=== PATIENT | female | born 1975 | race Hispanic/Latino ===

== ENCOUNTER 2016-12-17 09:02 | Emergency (ER) | payer OTHER ==
[2016-12-17 09:09] VITALS: BMI 23.6
[2016-12-17 09:10] VITALS: BP 116/67; PULSE 67; RESP 19; TEMP 98.2; O2SAT 98
[2016-12-17] MEDS ORDERED: Albuterol 0.083% Inhal Sol (2.5 mg/3 mL) UD INH STA (09:30)
--- NOTE | 2016-12-17 09:33 | ED PDOC ---
HPI: CCC, URI, Sore Throat Time Seen by Provider: 12/17/16 09:16 Chief Complaint (Nursing): Cough, Cold, Congestion History Per: Patient History/Exam Limitations: no limitations Onset/Duration Of Symptoms: Gradual (1 week worse today) Current Symptoms Are (Timing): Still Present Location Of Pain: None Sick Contacts (Context): None Associated Symptoms: Cough. denies: Fever, Chills, Sore Throat, Sputum, Neck Pain, Myalgias, Nasal Congestion, Nausea, Vomiting Ear Symptoms: Bilateral: None Severity: Mild Additional History Per: Patient Additional Complaint(s): worsening non prod cough for 1 week ran out of cough medicine and albuterol similar to asthma in the past Against Medical Advice - AMA Patient Left Against Medical Advice: The patient declines admission to the hospital and wishes to leave the Emergency Department. This action is against my medical advice. This decision was made with informed refusal. The patient was told that admission to the hospital is necessary. Explanation of the reasons why were discussed. The risks of leaving were explained to the patient and include, but are not limited to, worsening of known or currently unknown conditions, permanent disability and from undiagnosed or untreated conditions. The patient has the capacity to make this informed decision and understands my explanation of the current medical problem and risks of leaving. The patient voluntarily accepts these risks and signed an AMA form documenting our conversation. The patient was given the opportunity to ask questions and reconsider. The patient was encouraged to return to the Emergency Department at any time for further care. Past Medical History Reviewed: Historical Data, Nursing Documentation, Vital Signs Vital Signs: Last Vital Signs Temp 98.2 F 12/17/16 09:10 Pulse 67 12/17/16 09:10 Resp 19 12/17/16 09:10 BP 116/67 12/17/16 09:10 Pulse Ox 98 12/17/16 09:36 - Medical History PMH: Anxiety, Asthma, Back Problems, Bronchitis, COPD, Depression, Sexually Transmitted Disease - Surgical History Surgical History: (on 08/27/15) - Family History Family History: States: Unknown Family Hx - Living Arrangements Living Arrangements: Other (intermediate) - Social History Current smoker - smoking cessation education provided: No - Immunization History Hx Tetanus Toxoid Vaccination: No Hx Influenza Vaccination: No Hx Pneumococcal Vaccination: No - Home Medications Home Medications: Ambulatory Orders Medication Instructions Recorded Albuterol HFA [Ventolin HFA 90 1 puff IH Q4 #1 puff 05/14/16 mcg/actuation (8 g)] Albuterol 0.083% [Albuterol 0.083% 2.5 mg IH Q4 PRN #50 vial 07/01/16 Inhal Deloris (2.5 mg/3 ml) UD] Albuterol HFA [Ventolin HFA 90 2 puff IH Q4 PRN #1 unit 07/01/16 mcg/actuation (8 g)] Azithromycin [Zithromax] 250 mg PO DAILY #6 tab 07/01/16 Nebulizer and Compressor [Comp-Air 1 each MC PRN PRN #1 unit 07/01/16 Nebulizer System] Prednisone 50 mg PO DAILY #4 tab 07/01/16 Promethazine HCl/Codeine 5 ml PO TID PRN #25 syrup 07/01/16 [Prometh-Codein 6.25-10 mg/5 ml] - Allergies Allergies/Adverse Reactions: Allergies Allergy/AdvReac Type Severity Reaction Status Date / Time No Known Allergies Allergy Verified 12/17/16 09:21 Review of Systems ROS Statement: Except As Marked, All Systems Reviewed And Found Negative Constitutional: Negative for: Fever, Chills Cardiovascular: Negative for: Chest Pain, Palpitations Respiratory: Positive for: Cough, Shortness of Breath. Negative for: SOB with Exertion, Pleuritic Pain, Sputum Gastrointestinal: Negative for: Nausea, Vomiting, Abdominal Pain Neurological: Negative for: Weakness, Numbness, Headache Physical Exam - Reviewed Nursing Documentation Reviewed: Yes Vital Signs Reviewed: Yes - Physical Exam Appears: Positive for: Uncomfortable Head Exam: Positive for: ATRAUMATIC, NORMAL INSPECTION, NORMOCEPHALIC Eye Exam: Positive for: Normal appearance, EOMI, PERRL Neck: Positive for: Normal, Painless ROM, Supple. Negative for: Decreased ROM, Limited ROM, Trachea Midline, Pain On Movement Of Neck Cardiovascular/Chest: Positive for: Regular Rate, Rhythm, Chest Non Tender. Negative for: Edema, Gallop, Murmur, Bradycardia, Tachycardia Respiratory: Positive for: Wheezing (mild scattered). Negative for: Decreased Breath Sounds, Accessory Muscle Use, Crackles, Rales, Rhonchi, Stridor, Respiratory Distress, Plerual Rub Extremity: Positive for: Normal ROM. Negative for: Tenderness, Pedal Edema, Calf Tenderness, Deformity, Swelling Neurologic/Psych: Positive for: Alert, contact manager II-XII, Oriented, Mood/Affect (calm) . Negative for: Motor/Sensory Deficits, Facial Droop - ECG ECG: Positive for: Interpreted By Me ECG Rhythm: Positive for: Normal QRS, Normal ST Segment, Sinus Rhythm (rate of 63). Negative for: ST/T Changes Interpretation Of Abn EKG: no evidence of ischemia O2 Sat by Pulse Oximetry: 98 Pulse Ox Interpretation: Normal - Progress ED Course And Treament: pt left before treatment complete left before signing ama paperwork Re-evaluation Time: 09:36 Condition: Unchanged Disposition - Clinical Impression Clinical Impression: Bronchospasm - Patient ED Disposition Is Patient to be Admitted: No - Disposition Disposition: Left W/O Treatment Disposition Time: 09:56 Condition: STABLE
--- NOTE | 2016-12-19 06:39 | CARD ---
APPROVED REPORT EKG Measurement Heart [id number] <Conclusion> Normal sinus rhythm Possible Left atrial enlargement Borderline ECG
== END 2016-12-17 10:25 | disposition left against medical advice (07) ==
LOC: H.ER 09:02
DX: J98.01 Acute bronchospasm (principal); J44.9 Chronic obstructive pulmonary disease, unspecified

== ENCOUNTER 2016-12-24 23:43 | Emergency (ER) | payer MEDICAID, OTHER ==
[2016-12-24 23:43] VITALS: BMI 23.6
[2016-12-24 23:49] VITALS: BP 117/73; PULSE 70; RESP 18; TEMP 98; O2SAT 99
[2016-12-25] MEDS ORDERED: TDAP Vaccine 0.5 mL Syr IM ONE (00:30)
[2016-12-25] MEDS ORDERED: Oxycodone/Acetaminophen 5/325 mg Tab PO STA (00:30)
[2016-12-25] MEDS ORDERED: Lidocaine/Epi 1% 1:100000 20 ML IJ ONE (01:19)
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
[2016-12-25] MEDS ORDERED: Lidocaine 2% w Epi 1:100,000 Inj IJ ONE (01:40)
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
== END 2016-12-25 02:30 | disposition home or self-care (01) ==
LOC: H.ER 23:43
DX: S09.90XA Unspecified injury of head, initial encounter (principal); S01.01XA Laceration without foreign body of scalp, initial encounter; S09.93XA Unspecified injury of face, initial encounter; Y04.0XXA Assault by unarmed brawl or fight, initial encounter; Y92.89 Other specified places as the place of occurrence of the external cause; F32.9 Major depressive disorder, single episode, unspecified; F41.9 Anxiety disorder, unspecified; J44.9 Chronic obstructive pulmonary disease, unspecified; J45.909 Unspecified asthma, uncomplicated

== ENCOUNTER 2017-01-03 17:09 | Emergency (ER) | payer SELFPAY ==
[2017-01-03 17:09] VITALS: BMI 23.6
[2017-01-03 17:20] VITALS: BP 136/67; PULSE 61; RESP 16; TEMP 98.6; O2SAT 99
--- NOTE | 2017-01-03 17:44 | ED PDOC ---
HPI: CCC, URI, Sore Throat Time Seen by Provider: 01/03/17 17:16 Chief Complaint (Nursing): Cough, Cold, Congestion Chief Complaint (Provider): Cough History Per: Patient History/Exam Limitations: no limitations Have you had recent travel within the past 21 days to any of the following countries: [place], [place], [place] or [place]?: No Onset/Duration Of Symptoms: Days (7 days) Current Symptoms Are (Timing): Still Present Associated Symptoms: Diarrhea. denies: Fever Additional Complaint(s): Dominique Kaiser, a 41 year old female, presents to the ED with cough she has been experiencing for the past week. The patient states that her cough isn' t associated with any shortness of breath or fever. She also reports that today she had one episode of non bloody, watery diarrhea and crampy abdominal pains. The patient also states that she is also here today for a staple removal on her scalp she had placed 2 weeks ago. She also reports that 2 weeks ago she tripped and fell and and injured her right hand and has been feeling numbness to the right fourth and fifth digit and since has not been evaluated for it.Denies chest pain, hemoptysis, recent travel. Past Medical History Reviewed: Historical Data, Nursing Documentation, Vital Signs Vital Signs: Last Vital Signs Temp 98.6 F 01/03/17 17:16 Pulse 61 01/03/17 17:16 Resp 16 01/03/17 17:16 BP 136/67 01/03/17 17:16 Pulse Ox 99 01/03/17 18:11 - Medical History PMH: Anxiety, Asthma, Back Problems, Bronchitis, COPD, Depression, Sexually Transmitted Disease - Surgical History Surgical History: (on 08/27/15) - Family History Family History: States: Unknown Family Hx - Immunization History Hx Tetanus Toxoid Vaccination: No Hx Influenza Vaccination: No Hx Pneumococcal Vaccination: No - Home Medications Home Medications: Ambulatory Orders Medication Instructions Recorded Albuterol 0.083% [Albuterol 0.083% 2.5 mg IH Q4 PRN #50 vial 07/01/16 Inhal Deloris (2.5 mg/3 ml) UD] Nebulizer and Compressor [Comp-Air 1 each MC PRN PRN #1 unit 07/01/16 Nebulizer System] Albuterol HFA [Ventolin HFA 90 1 puff IH Q4 #1 puff 12/19/16 mcg/actuation (8 g)] Prednisone 50 mg PO DAILY #5 tablet 12/19/16 Albuterol 0.083% [Albuterol 0.083% 2.5 mg IH TID #100 neb 12/24/16 Inhal Deloris (2.5 mg/3 ml) UD] Ibuprofen [Motrin] 600 mg PO Q6H #20 tab 12/24/16 predniSONE [Prednisone] 40 mg PO DAILY #10 tab 12/24/16 Cyclobenzaprine [Cyclobenzaprine 10 mg PO BID #15 tab 12/25/16 HCl] Ibuprofen [Motrin Tab] 600 mg PO Q6 #30 tab 12/25/16 Benzonatate [Tessalon Perle] 100 mg PO Q8 PRN #15 capsule 01/03/17 - Allergies Allergies/Adverse Reactions: Allergies Allergy/AdvReac Type Severity Reaction Status Date / Time No Known Allergies Allergy Verified 01/03/17 17:15 Review of Systems Constitutional: Negative for: Fever Cardiovascular: Negative for: Chest Pain Respiratory: Positive for: Cough. Negative for: Shortness of Breath, Hemoptysis Gastrointestinal: Positive for: Abdominal Pain (Crampy abdominal pains), Diarrhea (One episode of non bloody, watery diarrhea.) Physical Exam - Reviewed Nursing Documentation Reviewed: Yes Vital Signs Reviewed: Yes - Physical Exam Appears: Positive for: Well, Non-toxic, No Acute Distress Head Exam: Positive for: ATRAUMATIC, NORMAL INSPECTION (3 [place] in placed in left anterior parietal scalp; no surrounding erythema to wound area.), NORMOCEPHALIC Skin: Positive for: Normal Color, Warm, Dry. Negative for: Rash Eye Exam: Positive for: Normal appearance, EOMI, PERRL ENT: Positive for: Normal ENT Inspection Neck: Positive for: Normal, Painless ROM, Supple Cardiovascular/Chest: Positive for: Regular Rate, Rhythm, Chest Non Tender. Negative for: Tachycardia Respiratory: Positive for: Normal Breath Sounds. Negative for: Wheezing, Respiratory Distress Pulses-Radial (L): 2+ Pulses-Radial (R): 2+ Gastrointestinal/Abdominal: Positive for: Normal Exam, Bowel Sounds, Soft. Negative for: Tenderness, Guarding, Rebound Back: Positive for: Normal Inspection Extremity: Positive for: Normal ROM (Full ROM actively to right hand.), Capillary Refill (Capillary refills less than 2 seconds on all digits on right hand.). Negative for: Tenderness (No tenderness to right hand.), Deformity (No deformity to right hand.), Swelling (No swelling to right hand.) Neurologic/Psych: Positive for: Alert, Oriented, Gait - ECG O2 Sat by Pulse Oximetry: 99 (RA) Pulse Ox Interpretation: Normal - Radiology X-Ray: Interpreted by Me (CXR) X-Ray Interpretation: No Acute Disease Medical Decision Making Medical Decision Makin:16 Initial Impression: 41 year old female presenting with a cough Initial Plan: * CXR(PA&LAT) * RAD Right hand 3 views [place] were removed from patient's scalp without difficulty. Patient tolerated the procedure well. Scribe Attestation Documented by Alexus White acting as a scribe for Harish Jacobo PA-C. Scribe Attestation All medical record entries made by the Scribe were at my direction and personally dictated by me. I have reviewed the chart and agree that the record accurately reflects my personal performance of the history, physical exam, medical decision making, and the department course for this patient. I have also personally directed, reviewed, and agree with the discharge instructions and disposition. Disposition - Clinical Impression Clinical Impression: Hand injury, Removal of [place], Diarrhea, Cough - Patient ED Disposition Is Patient to be Admitted: No Counseled Patient/Family Regarding: Studies Performed, Diagnosis - Disposition Referrals: [facility] [Outside] Disposition: Routine/Home Disposition Time: 18:10 Condition: STABLE Prescriptions: Benzonatate [Tessalon Perle] 100 mg PO Q8 PRN #15 capsule PRN Reason: Cough Instructions: Upper Respiratory Infection (ED), Acute Diarrhea (ED), Staple Care (ED) Print Language: AZERI
--- NOTE | 2017-01-03 18:02 | RAD ---
HISTORY: cough COMPARISON: 10/09/2015. TECHNIQUE: Chest PA and lateral FINDINGS: LUNGS: No active pulmonary disease. PLEURA: No significant pleural effusion identified. No pneumothorax apparent. CARDIOVASCULAR: Normal. OSSEOUS STRUCTURES: No significant abnormalities. VISUALIZED UPPER ABDOMEN: Normal. OTHER FINDINGS: None. IMPRESSION: No active disease. No significant interval change compared to the prior examination(s).
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
== END 2017-01-03 18:10 | disposition home or self-care (01) ==
LOC: H.ER 17:09
DX: Z48.02 Encounter for removal of sutures (principal); J06.9 Acute upper respiratory infection, unspecified; R19.7 Diarrhea, unspecified

== ENCOUNTER 2017-01-10 04:29 | Emergency (ER) | payer SELFPAY ==
[2017-01-10 04:29] VITALS: BMI 23.6
[2017-01-10 04:51] VITALS: BP 100/55; RESP 16; TEMP 98; O2SAT 98
--- NOTE | 2017-01-10 05:11 | ED PDOC ---
HPI: Chest Pain Time Seen by Provider: 01/10/17 04:51 Chief Complaint (Nursing): Chest Pain Chief Complaint (Provider): Chest pain, right arm numbness History Per: Patient History/Exam Limitations: no limitations Onset/Duration Of Symptoms: Hrs Current Symptoms Are (Timing): Still Present Severity: Moderate Quality: "Pain" Additional History Per: Patient Additional Complaint(s): The pt is a 41yo female, PMHx of COPD, Bronchitis, asthma, 2x , sciatica, presents to the ED for evaluation of left sided chest pain, non- radiating, present for the past couple hours with associated right arm numbness. Pt reports she was sleeping at onset of symptoms and denies any heavy lifting or injury to the area. She reports her pain is worse with inspiration and movement. Pt offers no additional medical complaints. Of note, pt is currently on injected control. PCP: Randal Li Past Medical History Reviewed: Historical Data, Nursing Documentation, Vital Signs Vital Signs: Last Vital Signs Temp 98 F 01/10/17 04:48 Pulse 80 01/10/17 04:48 Resp 16 01/10/17 04:48 BP 100/55 L 01/10/17 04:48 Pulse Ox 98 01/10/17 05:14 - Medical History PMH: Anxiety, Asthma, Back Problems, Bronchitis, COPD, Depression, Sexually Transmitted Disease - Surgical History Surgical History: (on 08/27/15) - Family History Family History: States: Unknown Family Hx - Social History Current smoker - smoking cessation education provided: Yes Alcohol: None Drugs: Denies - Immunization History Hx Tetanus Toxoid Vaccination: No Hx Influenza Vaccination: No Hx Pneumococcal Vaccination: No - Home Medications Home Medications: Ambulatory Orders Medication Instructions Recorded Albuterol 0.083% [Albuterol 0.083% 2.5 mg IH Q4 PRN #50 vial 07/01/16 Inhal Deloris (2.5 mg/3 ml) UD] Nebulizer and Compressor [Comp-Air 1 each MC PRN PRN #1 unit 07/01/16 Nebulizer System] Albuterol HFA [Ventolin HFA 90 1 puff IH Q4 #1 puff 12/19/16 mcg/actuation (8 g)] Prednisone 50 mg PO DAILY #5 tablet 12/19/16 Albuterol 0.083% [Albuterol 0.083% 2.5 mg IH TID #100 neb 12/24/16 Inhal Deloris (2.5 mg/3 ml) UD] Ibuprofen [Motrin] 600 mg PO Q6H #20 tab 12/24/16 predniSONE [Prednisone] 40 mg PO DAILY #10 tab 12/24/16 Cyclobenzaprine [Cyclobenzaprine 10 mg PO BID #15 tab 12/25/16 HCl] Ibuprofen [Motrin Tab] 600 mg PO Q6 #30 tab 12/25/16 Benzonatate [Tessalon Perle] 100 mg PO Q8 PRN #15 capsule 01/03/17 - Allergies Allergies/Adverse Reactions: Allergies Allergy/AdvReac Type Severity Reaction Status Date / Time No Known Allergies Allergy Verified 01/10/17 04:47 REBECA Risk Score for UA/NSTEMI - REBECA Risk Score Age > 64: NO 3 or more CAD Risk Factors: NO Known CAD (Stenosis greater than 50%): NO Aspirin use in past 7 days: NO Severe Angina: NO EKG ST changes greater than 0.5mm: NO Positive Cardiac Marker: NO REBECA Score: 0 Risk %: 5% Wells Criteria for PE - Wells Criteria for Pulmonary Embolism Clinical Signs and Symptoms of DVT: No P.E is #1 Diagnosis, or Equally Likely: No Heart Rate >100: No Immobilization at least 3 days;Surgery previous 4 weeks: No Previous, objectively diagnosed PE or DVT: No Hemoptysis: No Malignancy w/treatment within 6 months, or palliative: No Total Score: 0 Review of Systems ROS Statement: Except As Marked, All Systems Reviewed And Found Negative Cardiovascular: Positive for: Chest Pain (left sided) Musculoskeletal: Positive for: Other (right arm numbness) Physical Exam - Reviewed Nursing Documentation Reviewed: Yes Vital Signs Reviewed: Yes - Physical Exam Appears: Positive for: Well, Non-toxic, No Acute Distress Head Exam: Positive for: ATRAUMATIC, NORMAL INSPECTION, NORMOCEPHALIC Skin: Positive for: Normal Color, Warm, DRY Eye Exam: Positive for: Normal appearance Neck: Positive for: Normal, Supple Cardiovascular/Chest: Positive for: Regular Rate, Rhythm. Negative for: Chest Non Tender (+ tenderness to left chest wall below left breast.) Respiratory: Positive for: Normal Breath Sounds. Negative for: Respiratory Distress Gastrointestinal/Abdominal: Positive for: Normal Exam, Soft. Negative for: Tenderness Back: Positive for: Normal Inspection Extremity: Positive for: Normal ROM. Negative for: Deformity, Swelling Neurologic/Psych: Positive for: Alert, Oriented - ECG ECG: Positive for: Interpreted By Me, Viewed By Me ECG Rhythm: Positive for: Normal QRS, Normal ST Segment, Sinus Rhythm Rate: 73 O2 Sat by Pulse Oximetry: 98 (RA) Pulse Ox Interpretation: Normal Medical Decision Making Medical Decision Making: Time: 0500 Impression: Chest pain, right arm paresthesia Differential: PE, ACS, musculoskeletal pain, costochondritis left sided, right arm peripheral neuropathy Plan: -- -- -- Scribe Attestation: Documented by Marianne Crowder acting as a scribe for Chapo Kelly MD. Provider Attestation: All medical record entries made by the Scribe were at my direction and personally dictated by me. I have reviewed the chart and agree that the record accurately reflects my personal performance of the history, physical exam, medical decision making, and the department course for this patient. I have also personally directed, reviewed, and agree with the discharge instructions and disposition. Disposition - Clinical Impression Clinical Impression: Chest pain - Patient ED Disposition Is Patient to be Admitted: No - Disposition Referrals: Randal Li, BETTINA, PHOTOGRAMMETRIST [Primary Care Provider] - Disposition: Left W/O Treatment Disposition Time: 05:30 Condition: FAIR
--- NOTE | 2017-01-13 15:45 | CARD ---
APPROVED REPORT EKG Measurement Heart [id number] <Conclusion> Normal sinus rhythm Normal ECG
[2017-01-14 19:04] VITALS: PULSE 73
== END 2017-01-10 05:15 | disposition left against medical advice (07) ==
LOC: H.ER 04:29
DX: R07.9 Chest pain, unspecified (principal); J45.909 Unspecified asthma, uncomplicated

== ENCOUNTER 2017-02-12 12:39 | Emergency (ER) | payer OTHER ==
[2017-02-12 12:39] VITALS: BMI 23.6
[2017-02-12 13:00] VITALS: BP 110/69; PULSE 69; RESP 18; TEMP 97.4; O2SAT 98
--- NOTE | 2017-02-12 13:27 | ED PDOC ---
HPI: Allergic Reaction Time Seen by Provider: 02/12/17 13:00 Chief Complaint (Nursing): Abnormal Skin Integrity Chief Complaint (Provider): Rash, cough History Per: Patient History/Exam Limitations: no limitations Onset/Duration Of Symptoms: Hrs, Days Current Symptoms Are (Timing): Still Present Possible Cause: Insect Bite Associated Symptoms: Skin Rash, Itching Additional Complaint(s): The patient is a 41yo female with past medical history of COPD, presents to the ED for evaluation of itchy rash present on her lower back. Patient reports she used calamine lotion with no relief. Patient additionally reports her chronic cough has been worsening over the past 3 days and she has been using Tessalon without relief. Patient denies any shortness of breath, throat swelling and offers no additional medical complaints. Past Medical History Reviewed: Historical Data, Nursing Documentation, Vital Signs Vital Signs: Last Vital Signs Temp 97.4 F L 02/12/17 12:57 Pulse 69 02/12/17 12:57 Resp 18 02/12/17 12:57 BP 110/69 02/12/17 12:57 Pulse Ox 98 02/12/17 12:57 - Medical History PMH: Anxiety, Asthma, Back Problems, Bronchitis, COPD, Depression, Sexually Transmitted Disease - Surgical History Surgical History: (on 08/27/15) - Family History Family History: States: Unknown Family Hx - Immunization History Hx Tetanus Toxoid Vaccination: No Hx Influenza Vaccination: No Hx Pneumococcal Vaccination: No - Home Medications Home Medications: Ambulatory Orders Medication Instructions Recorded Albuterol 0.083% [Albuterol 0.083% 2.5 mg IH Q4 PRN #50 vial 07/01/16 Inhal Deloris (2.5 mg/3 ml) UD] Nebulizer and Compressor [Comp-Air 1 each MC PRN PRN #1 unit 07/01/16 Nebulizer System] Albuterol HFA [Ventolin HFA 90 1 puff IH Q4 #1 puff 12/19/16 mcg/actuation (8 g)] Prednisone 50 mg PO DAILY #5 tablet 12/19/16 Albuterol 0.083% [Albuterol 0.083% 2.5 mg IH TID #100 neb 12/24/16 Inhal Deloris (2.5 mg/3 ml) UD] Ibuprofen [Motrin] 600 mg PO Q6H #20 tab 12/24/16 predniSONE [Prednisone] 40 mg PO DAILY #10 tab 12/24/16 Cyclobenzaprine [Cyclobenzaprine 10 mg PO BID #15 tab 12/25/16 HCl] Ibuprofen [Motrin Tab] 600 mg PO Q6 #30 tab 12/25/16 Benzonatate [Tessalon Perle] 100 mg PO Q8 PRN #15 capsule 01/03/17 Albuterol HFA [Ventolin HFA 90 2 puff IH [id number] PRN #1 inhaler 02/12/17 mcg/actuation (8 g)] DiphenhydrAMINE [Benadryl] 2 tab PO Q6 PRN #24 cap 02/12/17 Hydrocortisone 1% Oint [Cortizone 0.5 gm TP BID #1 tube 02/12/17 1% Oint] - Allergies Allergies/Adverse Reactions: Allergies Allergy/AdvReac Type Severity Reaction Status Date / Time No Known Allergies Allergy Verified 01/10/17 04:47 Review of Systems ROS Statement: Except As Marked, All Systems Reviewed And Found Negative ENT: Negative for: Throat Pain, Throat Swelling Respiratory: Positive for: Cough. Negative for: Shortness of Breath Skin: Positive for: Rash Physical Exam - Reviewed Nursing Documentation Reviewed: Yes Vital Signs Reviewed: Yes - Physical Exam Appears: Positive for: Well, Non-toxic, No Acute Distress Head Exam: Positive for: ATRAUMATIC, NORMAL INSPECTION, NORMOCEPHALIC Skin: Positive for: Normal Color, Warm, DRY Eye Exam: Positive for: Normal appearance Neck: Positive for: Normal, Supple Cardiovascular/Chest: Positive for: Chest Non Tender Respiratory: Positive for: Normal Breath Sounds, Wheezing (mild). Negative for : Respiratory Distress Back: Positive for: Other (multiple small papular lesions present on lower back with mild surrounding utricarial rash) Extremity: Positive for: Normal ROM, Other (multiple papular lesions noted on extensor surface of b/l upper extremities). Negative for: Deformity Neurologic/Psych: Positive for: Alert, Oriented - ECG O2 Sat by Pulse Oximetry: 98 Disposition - Clinical Impression Clinical Impression: Bedbug bite, Cough - Patient ED Disposition Is Patient to be Admitted: No - Disposition Disposition: Routine/Home Disposition Time: 13:15 Condition: STABLE Prescriptions: Albuterol HFA [Ventolin HFA 90 mcg/actuation (8 g)] 2 puff IH [id number] PRN #1 inhaler PRN Reason: Cough DiphenhydrAMINE [Benadryl] 2 tab PO Q6 PRN #24 cap PRN Reason: Rash Hydrocortisone 1% Oint [Cortizone 1% Oint] 0.5 gm TP BID #1 tube Instructions: Asthma (DC), Insect Bite or Sting (ED) Forms: Identified (Uzbek) Medical Decision Making Medical Decision Making: Time: 1310 Impression: Rash, chronic cough Plan: -- Patient declines any medication at present, will give prescriptions for cortisone, benadryl and inhaler. Informed to follow up with Randal Li in 1-2 days. Scribe Attestation: Documented by Marianne Crowder acting as a scribe for AIMEE Bose Provider Attestation: All medical record entries made by the Scribe were at my direction and personally dictated by me. I have reviewed the chart and agree that the record accurately reflects my personal performance of the history, physical exam, medical decision making, and the department course for this patient. I have also personally directed, reviewed, and agree with the discharge instructions and disposition.
== END 2017-02-12 13:25 | disposition home or self-care (01) ==
LOC: H.ER 12:39
DX: R05 Cough (principal); T78.40XA Allergy, unspecified, initial encounter; J44.9 Chronic obstructive pulmonary disease, unspecified; Z86.59 Personal history of other mental and behavioral disorders; W57.XXXA Bitten or stung by nonvenomous insect and other nonvenomous arthropods, initial encounter

== ENCOUNTER 2017-02-12 14:43 | Emergency (ER) | payer OTHER, SELFPAY ==
[2017-02-12 14:43] VITALS: BMI 23.6
[2017-02-12 14:47] VITALS: BP 109/61; PULSE 78; RESP 18; TEMP 97; O2SAT 100
--- NOTE | 2017-02-12 14:59 | ED PDOC ---
HPI: Allergic Reaction Time Seen by Provider: 02/12/17 14:45 Chief Complaint (Nursing): Abnormal Skin Integrity Chief Complaint (Provider): Unable to fill meds History Per: Patient History/Exam Limitations: no limitations Onset/Duration Of Symptoms: Mins Additional Complaint(s): Time: 1444 Patient seen and evaluated in facility earlier today and reported she did not want Benadryl in room and would take prescriptions. Patient presents now requesting Benadryl for her allergies as she was not able to fill out the prescriptions. Patient denies any new medical complaints. Past Medical History Reviewed: Historical Data, Nursing Documentation, Vital Signs Vital Signs: Last Vital Signs Temp 97 F L 02/12/17 14:44 Pulse 78 02/12/17 14:44 Resp 18 02/12/17 14:44 BP 109/61 02/12/17 14:44 Pulse Ox 100 02/12/17 14:44 - Medical History PMH: Anxiety, Asthma, Back Problems, Bronchitis, COPD, Depression, Sexually Transmitted Disease - Surgical History Surgical History: (on 08/27/15) - Family History Family History: States: Unknown Family Hx - Immunization History Hx Tetanus Toxoid Vaccination: No Hx Influenza Vaccination: No Hx Pneumococcal Vaccination: No - Home Medications Home Medications: Ambulatory Orders Medication Instructions Recorded Albuterol 0.083% [Albuterol 0.083% 2.5 mg IH Q4 PRN #50 vial 07/01/16 Inhal Deloris (2.5 mg/3 ml) UD] Nebulizer and Compressor [Comp-Air 1 each MC PRN PRN #1 unit 07/01/16 Nebulizer System] Albuterol HFA [Ventolin HFA 90 1 puff IH Q4 #1 puff 12/19/16 mcg/actuation (8 g)] Prednisone 50 mg PO DAILY #5 tablet 12/19/16 Albuterol 0.083% [Albuterol 0.083% 2.5 mg IH TID #100 neb 12/24/16 Inhal Deloris (2.5 mg/3 ml) UD] Ibuprofen [Motrin] 600 mg PO Q6H #20 tab 12/24/16 predniSONE [Prednisone] 40 mg PO DAILY #10 tab 12/24/16 Cyclobenzaprine [Cyclobenzaprine 10 mg PO BID #15 tab 06/07/17 HCl] Ibuprofen [Motrin Tab] 600 mg PO Q6 #30 tab 12/25/16 Benzonatate [Tessalon Perle] 100 mg PO Q8 PRN #15 capsule 01/03/17 Albuterol HFA [Ventolin HFA 90 2 puff IH [id number] PRN #1 inhaler 02/12/17 mcg/actuation (8 g)] DiphenhydrAMINE [Benadryl] 2 tab PO Q6 PRN #24 cap 02/12/17 Hydrocortisone 1% Oint [Cortizone 0.5 gm TP BID #1 tube 02/12/17 1% Oint] - Allergies Allergies/Adverse Reactions: Allergies Allergy/AdvReac Type Severity Reaction Status Date / Time No Known Allergies Allergy Verified 01/10/17 04:47 Review of Systems ROS Statement: Except As Marked, All Systems Reviewed And Found Negative Skin: Positive for: Rash Physical Exam - Reviewed Nursing Documentation Reviewed: Yes Vital Signs Reviewed: Yes - Physical Exam Appears: Positive for: Well, Non-toxic, No Acute Distress Head Exam: Positive for: ATRAUMATIC, NORMAL INSPECTION, NORMOCEPHALIC Skin: Positive for: Normal Color Eye Exam: Positive for: EOMI, Normal appearance, PERRL Cardiovascular/Chest: Positive for: Regular Rate, Rhythm Respiratory: Positive for: Normal Breath Sounds. Negative for: Respiratory Distress Neurologic/Psych: Positive for: Alert, Oriented - ECG O2 Sat by Pulse Oximetry: 100 - Progress ED Course And Treament: Time: 1449 Benadryl 50 mg IM ordered Time: 1500 Patient refused Benadryl upon seeing needle, reports she will attempt to fill her prescriptions. Disposition - Clinical Impression Clinical Impression: Bed bug bite - Patient ED Disposition Is Patient to be Admitted: No - Disposition Disposition: Routine/Home Disposition Time: 15:00 Condition: FAIR Instructions: Insect Bite or Sting (ED) Forms: [employer] (Somali)
[2017-02-12] MEDS ORDERED: DiphenhydrAMINE 50 mg/ml Inj ONE (15:02)
[2017-02-12] MEDS: DiphenhydrAMINE 50 mg/ml Inj IM STA ×2 (15:03→15:06)
== END 2017-02-12 15:08 | disposition home or self-care (01) ==
LOC: H.ER 14:43
DX: T78.40XA Allergy, unspecified, initial encounter (principal); J44.9 Chronic obstructive pulmonary disease, unspecified; Z86.59 Personal history of other mental and behavioral disorders; W57.XXXA Bitten or stung by nonvenomous insect and other nonvenomous arthropods, initial encounter

== ENCOUNTER 2017-02-20 15:39 | Emergency (ER) | payer SELFPAY ==
[2017-02-20 15:39] VITALS: BMI 23.6
[2017-02-20] MEDS ORDERED: Albuterol-Ipratrop 3 mg / 0.5 (3 ml) UD INH STA (16:28)
--- NOTE | 2017-02-20 16:28 | ED PDOC ---
HPI: CCC, URI, Sore Throat Time Seen by Provider: 02/20/17 16:04 Chief Complaint (Nursing): Dizziness/Lightheaded Chief Complaint (Provider): cough History Per: Patient Additional Complaint(s): 41-year-old female with history of asthma presents to emergency Department with chest congestion and cough for 3 days. Patient states cough is productive of yellow and green sputum. Patient denies any shortness of breath but does have mild chest pain especially when coughing excessively. She states that she is out of her cough medication, promethazine with codeine. Past Medical History Reviewed: Historical Data, Nursing Documentation, Vital Signs Vital Signs: Last Vital Signs Temp 98.0 F 02/20/17 18:30 Pulse 65 02/20/17 18:30 Resp 18 02/20/17 18:30 BP 107/71 02/20/17 18:30 Pulse Ox 96 02/20/17 18:43 - Medical History PMH: Anxiety, Asthma, Back Problems, COPD, Depression - Surgical History Surgical History: (x 2) - Family History Family History: States: No Known Family Hx - Living Arrangements Living Arrangements: With Family - Social History Current smoker - smoking cessation education provided: Yes ("sometimes") Alcohol: None Drugs: Denies - Home Medications Home Medications: Ambulatory Orders Medication Instructions Recorded Albuterol 0.083% [Albuterol 0.083% 2.5 mg IH Q4 PRN #50 vial 07/01/16 Inhal Deloris (2.5 mg/3 ml) UD] Nebulizer and Compressor [Comp-Air 1 each MC PRN PRN #1 unit 07/01/16 Nebulizer System] Albuterol HFA [Ventolin HFA 90 1 puff IH Q4 #1 puff 12/19/16 mcg/actuation (8 g)] Prednisone 50 mg PO DAILY #5 tablet 12/19/16 Albuterol 0.083% [Albuterol 0.083% 2.5 mg IH TID #100 neb 12/24/16 Inhal Deloris (2.5 mg/3 ml) UD] Ibuprofen [Motrin] 600 mg PO Q6H #20 tab 12/24/16 predniSONE [Prednisone] 40 mg PO DAILY #10 tab 12/24/16 Cyclobenzaprine [Cyclobenzaprine 10 mg PO BID #15 tab 12/25/16 HCl] Ibuprofen [Motrin Tab] 600 mg PO Q6 #30 tab 12/25/16 Benzonatate [Tessalon Perle] 100 mg PO Q8 PRN #15 capsule 01/03/17 Albuterol HFA [Ventolin HFA 90 2 puff IH [id number] PRN #1 inhaler 02/12/17 mcg/actuation (8 g)] DiphenhydrAMINE [Benadryl] 2 tab PO Q6 PRN #24 cap 02/12/17 Hydrocortisone 1% Oint [Cortizone 0.5 gm TP BID #1 tube 02/12/17 1% Oint] Azithromycin [Zithromax] 250 mg PO DAILY #6 tab 02/20/17 Prednisone 50 mg PO DAILY #5 tablet 02/20/17 - Allergies Allergies/Adverse Reactions: Allergies Allergy/AdvReac Type Severity Reaction Status Date / Time No Known Allergies Allergy Verified 01/10/17 04:47 Curb-65 Severity Score - CURB-65 Severity Score Confusion: No Respiratory Rate greater than/equal to 30: No Age >64: No Curb-65 Score: 0 Percentage 30-day mortality: 0.6% Review of Systems ROS Statement: Except As Marked, All Systems Reviewed And Found Negative Constitutional: Negative for: Fever Cardiovascular: Positive for: Chest Pain (due to cough) Respiratory: Positive for: Cough, Shortness of Breath, Wheezing Gastrointestinal: Negative for: Vomiting Neurological: Positive for: Dizziness. Negative for: Headache Physical Exam - Reviewed Nursing Documentation Reviewed: Yes Vital Signs Reviewed: Yes - Physical Exam Appears: Positive for: Well, Non-toxic, No Acute Distress Head Exam: Positive for: ATRAUMATIC, NORMAL INSPECTION, NORMOCEPHALIC ENT: Positive for: Normal ENT Inspection Cardiovascular/Chest: Positive for: Regular Rate, Rhythm Respiratory: Positive for: Decreased Breath Sounds. Negative for: Respiratory Distress Extremity: Negative for: Pedal Edema, Calf Tenderness Neurologic/Psych: Positive for: Alert, Oriented - Laboratory Results Result Diagrams: 02/20/17 17:36 02/20/17 17:36 Urine POC: Negative - ECG Interpretation Of ECG: NSR 65 bpm, no acute finding, reviewed by PA and ED attending. O2 Sat by Pulse Oximetry: 96 Pulse Ox Interpretation: Normal - Other Rad CXR X-Ray: Interpreted by Me, Viewed By Me X-Ray Interpretation: no acute finding Nebulizer Treatments/Peak Flow - Duonebs Number of Bronchodilator Doses given?: 2 (duoneb) - Pre/Post Peak Flow Pre Treatment Peak Flow: 350 Post treatment Peak Flow: 380 - Steroid Treatment Steroid: IV (IM solumedrol 125 mg) - Clinical Response Clinical Response: Improved Medical Decision Making Medical Decision Makin41 year old female with asthma exacerbation Plan: CXR EKG CBC CMP Trop IVF Duoneb x 2 125 mg IM solumedrol Patient is aware of all diagnostic testing results, all questions answered. Patient feels much better after meds given in ED. Prescription given for prednisone and Zithromax. Patient has Ventolin inhaler at home. She was advised to follow up with primary doctor in 1-2 days. Disposition - Clinical Impression Clinical Impression: Asthma, Asthmatic bronchitis - Patient ED Disposition Is Patient to be Admitted: No Counseled Patient/Family Regarding: Studies Performed, Diagnosis, Need For Followup, Rx Given - Disposition Referrals: Randal Li, BETTINA, CAMPUS PRESIDENT [Advanced Practice Nurse] - Disposition: Routine/Home Disposition Time: 18:59 Condition: IMPROVED Additional Instructions: Take prescription meds as directed. Rest and drink plenty of fluids. Use inhaler as needed. Follow up with primary doctor in 1-2 days. Prescriptions: Azithromycin [Zithromax] 250 mg PO DAILY #6 tab Prednisone 50 mg PO DAILY #5 tablet Instructions: Asthma (ED), Acute Bronchitis (ED) Forms: [employer] (Yoruba) Results - Lab Results Lab Results: 02/20/17 02/20/17 17:36 17:36 WBC 7.5 RBC 4.99 Hgb 16.0 Hct 48.3 H MCV 96.7 MCH 32.1 H MCHC 33.2 RDW 13.6 Plt Count 178 MPV 9.5 Neut % (Auto) 62.6 Lymph % (Auto) 29.7 [place] % (Auto) 5.7 Eos % (Auto) 1.2 Baso % (Auto) 0.8 Neut # 4.7 Lymph # 2.2 [place] # 0.4 Eos # 0.1 Baso # 0.1 Sodium 141 Potassium 3.8 Chloride 105 Carbon Dioxide 24 Anion Gap 16 BUN 10 Creatinine 0.9 Est GFR ( Amer) > 60 Est GFR (Non-Af Amer) > 60 Random Glucose 138 H Calcium 10.0 Total Bilirubin 0.9 AST 25 ALT 33 Alkaline Phosphatase 57 Troponin I < 0.0120 Total Protein 8.0 Albumin 4.8 Globulin 3.2 Albumin/Globulin Ratio 1.5
[2017-02-20] MEDS ORDERED: Albuterol-Ipratrop 3 mg / 0.5 (3 ml) UD ONE (16:36)
[2017-02-20] MEDS ORDERED: Sodium Chloride 0.9% 1,000 ML IV STA (17:12)
--- NOTE | 2017-02-20 17:17 | RAD ---
HISTORY: cough COMPARISON: 01/03/2017. TECHNIQUE: Chest PA and lateral FINDINGS: LUNGS: No active pulmonary disease. PLEURA: No significant pleural effusion identified. No pneumothorax apparent. CARDIOVASCULAR: Normal. OSSEOUS STRUCTURES: No significant abnormalities. VISUALIZED UPPER ABDOMEN: Normal. OTHER FINDINGS: None. IMPRESSION: No active disease. No significant interval change compared to the prior examination(s). Concordant results with the preliminary interpretation rendered by the emergency department physician procedure.
[2017-02-20 17:43] LABS: BASO # 0.1 K/uL (0.0-0.2); BASO % 0.8 % (0.0-2.0); EOS # 0.1 K/uL (0.0-0.7); EOS % 1.2 % (0.0-4.0); LYMPH # 2.2 K/uL (1.0-4.3); LYMPH % 29.7 % (20.0-40.0); MEAN CELL VOLUME 96.7 fl (81.0-99.0); MEAN CORPUSCULAR HEMOGLOBIN 32.1 pg (27.0-31.0); MEAN CORPUSCULAR HGB CONC 33.2 g/dL (33.0-37.0); MEAN PLATELET VOLUME 9.5 fl (7.2-11.7); MONO # 0.4 K/uL (0.0-0.8); MONO % 5.7 % (0.0-10.0); NEUT # 4.7 K/uL (1.8-7.0); NEUT % 62.6 % (50.0-75.0); NRBC % 0.1 % (0.0-0.0); RBC 4.99 Mil/uL (3.80-5.20); RED CELL DISTRIBUTION WIDTH 13.6 % (11.5-14.5); WHITE BLOOD COUNT 7.5 K/uL (4.8-10.8)
[2017-02-20 18:07] LABS: ALB/GLOB RATIO 1.5 (1.0-2.1); ALBUMIN 4.8 g/dL (3.5-5.0); ALT/SGPT 33 U/L (9-52); AST/SGOT 25 U/L (14-36); BLOOD UREA NITROGEN 10 mg/dl (7-17); GFR AFRICAN-AMERICAN > 60; GFR NON-AFRICAN AMERICAN > 60
[2017-02-20 18:31] VITALS: BP 107/71; PULSE 65; RESP 18; TEMP 98
[2017-02-20 18:43] VITALS: O2SAT 96
--- NOTE | 2017-02-21 10:19 | CARD ---
APPROVED REPORT EKG Measurement Heart [id number] <Conclusion> Normal sinus rhythm T wave abnormality, consider inferior ischemia Abnormal ECG
== END 2017-02-20 19:09 | disposition home or self-care (01) ==
LOC: H.ER 15:39
DX: J45.909 Unspecified asthma, uncomplicated (principal); F32.9 Major depressive disorder, single episode, unspecified